=== PATIENT | female | born 1980 | race African-American/Black ===

== ENCOUNTER 2018-07-15 08:52 | Emergency (ER) | payer OTHER, SELFPAY ==
[2018-07-15 09:41] LABS: Bilirubin Negative (Negative); Blood, Urine Negative (Negative); Clarity CLOUDY (Clear); Glucose, Urine (Dipstick) Negative (Negative); Leukocyte Negative (Negative); Nitrite Negative (Negative); Protein, Urine (Dipstick) Negative (Neg-Trace); Specific Gravity, Urine 1.017 (1.002-1.036); Urobilinogen 0.2 mg/dL (0.2-1.0); pH, Urine 7.5 (5.0-9.0)
[2018-07-15 09:52] LABS: Pregnancy Test - Urine (BHCG) Negative (Negative); Pregu Control Background? CLEAR/WHITE (CLR/WHITE); Pregu Control Bar Appear? YES (CONTROL BAR); Specific Gravity 1.017 (1.002-1.036)
== END 2018-07-15 10:34 | disposition home or self-care (01) ==
LOC: ERS 08:52
DX: J30.9 Allergic rhinitis, unspecified (principal); I10 Essential (primary) hypertension; F32.9 Major depressive disorder, single episode, unspecified
CPT/HCPCS: 81003; 81025; 99283

== ENCOUNTER 2018-09-12 17:07 | Emergency (ER) | payer SELFPAY ==
[2018-09-12] MEDS ORDERED: Ibuprofen 800 MG TAB ONE (17:50)
== END 2018-09-12 18:29 | disposition home or self-care (01) ==
LOC: ERS 17:07
DX: J01.90 Acute sinusitis, unspecified (principal); I10 Essential (primary) hypertension; J45.909 Unspecified asthma, uncomplicated; F32.9 Major depressive disorder, single episode, unspecified
CPT/HCPCS: 87081; 87430; 87804; 99283